=== PATIENT | male | born 1965 | race Caucasian/White ===

== ENCOUNTER → 2024-01-25 14:17 | Outpatient (BNVA) | payer OTHER, SELFPAY | PROVIDERS: Visit Provider Orthopaedic Surgery | DX: M47.22 Other spondylosis with radiculopathy, cervical region (principal); M54.50 Low back pain, unspecified; M54.2 Cervicalgia; M54.9 Dorsalgia, unspecified | CPT/HCPCS: 72110; 99204 ==

== ENCOUNTER 2024-04-02 13:02 | Outpatient (CLI) | payer OTHER, SELFPAY ==
--- NOTE | 2024-04-02 13:00 | MR_ITS ---
WS: [id number] MRI LUMBAR SPINE NONCONTRAST HISTORY: lumbar pain COMPARISON: Lumbar radiograph 01/25/2024 TECHNIQUE: Sagittal and axial multisequence imaging is submitted. Mild increase in thoracic kyphosis. Slight retrolisthesis of L2. 5 nonrib-bearing lumbar vertebral bodies were noted on the recent radiog raph. This numbering pattern is used for this MRI purpose. Disc spaces and vertebral body heights are well-preserved. Conus terminates normally at L1-2 disc level. L1-L2: Mild facet arthritis and narrowing of the LEFT foramen. L2-L3: Mild annular disc bulging with mild ligamentum flavum and facet disease. Small amount of fluid in the facet joints. No significant stenosis. L3-L4: Mild annular disc bulging with moderate ligamentum flavum and facet arthritis. Small amount of fluid in the facet joints. There is disc encroachment upon the subarticular recesses and traversing L4 nerve roots. Mild central, bilateral subarticular recess and foraminal stenosis. L4-L5: Mild annular disc bulging with ligamentum flavum and advanced facet arthritis. Small amount of fluid in the facet joints. Shallow RIGHT foraminal disc protrusion. Marked degenerative changes invo lving the facet joints with fluid. Mild central stenosis with bilateral subarticular recess encroachm ent. At least moderate bilateral foraminal stenosis but greatest on the RIGHT. There is significant e ncroachment upon the RIGHT exiting L4 nerve root. Lesser encroachment on the LEFT. L5-S1: Mild annular disc bulging. Moderate facet joint arthritis, RIGHT greater than LEFT. Mild facet joint synovitis is noted at L4-5 and L5-S1, greater on the RIGHT than the LEFT. 8 mm cyst associated with the RIGHT L4-5 facet joint. Small cyst lower pole RIGHT kidney. MR/MR lumbar spine wo con* [id number] IMPRESSION: 1. Advanced facet joint arthritis at L4-5 and L5-S1 with synovitis, greatest o n the RIGHT. 2. L3-4: Mild central and bilateral subarticular recess and foraminal stenosis . Disc encroachment upon the traversing L4 nerve roots. 3. L4-5: Mild central with bilateral subarticular recess encroachment. Moderat e bilateral foraminal stenosis, greatest on the RIGHT. Most significant encroac hment is upon RIGHT exiting L4 nerve root. 4. No high-grade central stenosis.
--- NOTE | 2024-04-02 13:45 | MR_ITS ---
WS: [id number] MRI CERVICAL SPINE NONCONTRAST HISTORY: Bilateral neck pain. COMPARISON: None available. Technique: Multiplanar, multisequence noncontrast imaging of the cervical spine. Normal cervical alignment with no compression fracture or significant disc space narrowing. Signal within the cervical cord is normal. Visualized posterior fossa is unremarkable. Craniocervical junction, C1 and C2 relationship, odontoid process and soft tissues are normal. C2-C3: Normal. C3-C4: Normal. C4-C5: Mild osteophytic ridging. Very mild bilateral foraminal stenosis. C5-C6: Mild annular disc bulging with a central disc protrusion. Bilateral foraminal disc osteophyte complexes. Mild central stenosis with moderate to severe RIGHT foraminal stenosis due to the disc ost eophyte complex. Mild stenosis LEFT foramen. C6-C7: Mild annular disc bulging. Moderate to large LEFT foraminal disc osteophyte. There is deformit y of the exiting nerve root and posterior displacement. Additional slightly smaller disc osteophyte c omplex on the RIGHT. Mild central with severe LEFT and moderate RIGHT foraminal stenosis. C7-T1: Normal. Paraspinal soft tissue are normal. MR/MR cervical spin wo con* [id number] IMPRESSION: 1. C5-6: Central and bilateral disc osteophyte complexes. Moderate to severe R IGHT foraminal with mild central and LEFT foraminal stenosis. 2. C6-7: Moderate to large LEFT foraminal disc osteophyte complex. Resulting i n severe LEFT foraminal stenosis. Moderate RIGHT foraminal stenosis due to disc osteophyte complex and mild central stenosis.
== END 2024-04-02 13:03 | disposition home or self-care (01) ==
LOC: RAD 13:03
PROVIDERS: PCP Emergency Medicine Emergency Medical Services; Visit Provider Orthopaedic Surgery
DX: M99.61 Osseous and subluxation stenosis of intervertebral foramina of cervical region (principal); M25.78 Osteophyte, vertebrae; M47.896 Other spondylosis, lumbar region; M65.9 Synovitis and tenosynovitis, unspecified; M47.898 Other spondylosis, sacral and sacrococcygeal region
CPT/HCPCS: 72141; 72148

== ENCOUNTER → 2024-05-09 11:00 | Outpatient (BNVA) | payer OTHER, SELFPAY | PROVIDERS: PCP Emergency Medicine Emergency Medical Services; Visit Provider Orthopaedic Surgery | DX: Z01.818 Encounter for other preprocedural examination (principal); Z09 Encounter for follow-up examination after completed treatment for conditions other than malignant neoplasm | CPT/HCPCS: 36415; 80053; 81001; 85025; 99214 ==

== ENCOUNTER 2024-05-24 07:32 | Day surgery (SDC) | payer OTHER, SELFPAY ==
[2024-05-24] VITALS (11 sets, daily range): BP systolic 109–162; BP diastolic 70–105; PULSE 54–81; RESP 12–18; TEMP 36.2–36.7; O2SAT 93–99; BMI 31.2
--- NOTE | 2024-05-24 | XR_ITS ---
WS: [id number] Exam: XR lumbar spine 2-3V* [id number] Date/Time of Exam: 05/24/2024 12:00 AM Reason For Exam: CARITO PICKamla Intraoperative C-arm images of the lower lumbar spine are submitted for evaluation. Images are obtained for intraoperative localization purposes.
[2024-05-24] MEDS: sodium chloride 0.9% 1,000 ML 30 ML IV (09:12)
[2024-05-24] MEDS: fentaNYL 50 mcg/mL INJ 2mL 100 MCG IVP (11:06)
--- NOTE | 2024-05-24 11:18 | ANES.PREANE2 ---
Pre-Anesthetic Assessment Height/Weight: Height 5 ft 11 in Weight 224 lb Temp Pulse Resp BP Pulse Ox O2 Del Method 98.0 F 60 18 159/101 94 Room Air 05/24/24 08:58 05/24/24 08:58 05/24/24 11:06 05/24/24 08:58 05/24/24 11:06 05/24/24 08:59 Preop Diagnosis: Lumbar stenosis with neurogenic claudication Operation Date: 05/24/24 13:05 Proposed Procedures p Lumbar Spine Decompression Lumbar Decompression(Not Applicable) - Prabhu Jeffries, DO Was Beta Irina taken within 24 hours: N/A Was Clonidine taken within 24 hours: N/A Last intake: Intake Last Liquid Date 05/24/24 Last Liquid Time 05:30 Last Solid Date 05/23/24 Last Solid Time 20:30 Social Tobacco and No alcohol Exam alert, oriented x 3, clear to auscultation bilaterally and regular rate & rhythm Airway Submandibular: within normal limits Cervical ROM: within normal limits Mallampati: Class III Dentition: full Anesthetic Plan ASA status: 2 Anesthesia: General Other: No history of anesthesia NPO since this a.m., black coffee at 5:30 AM Current smoker, no inhaler use Denies any cardiac issues. Preop BP 159/101 Patient appears very nervous METs greater than 4 Plan for GETA Medications/Allergies Home Medications Medication Instructions Recorded Confirmed Last Taken Type gabapentin 600 mg tablet 1,200 mg PO TID 01/25/24 05/23/24 05/23/24 History indomethacin 50 mg capsule 50 mg PO BID 01/25/24 05/23/24 05/23/24 History pantoprazole 40 mg tablet,delayed 40 mg PO DAILY 01/25/24 05/23/24 05/24/24 History release Allergies Allergy/AdvReac Type Severity Reaction Status Date / Time No Known Allergies Allergy Verified 05/20/24 11:48 Current Medications Generic Name Dose Route Start Last Admin Trade Name Freq PRN Reason Stop Dose Admin Sodium Chloride 1,000 mls @ 30 mls/hr 05/24/24 09:00 05/24/24 09:12 Sodium Chloride 0.9% IV 05/25/24 08:59 30 mls/hr .Q24H ADRIAN Administration PFSH Anesthesia Social History Smoking and tobacco/nicotine status: current every day tobacco/nicotine user Data Anesthesia Cardiac Studies: No Data to Display
--- NOTE | 2024-05-24 11:20 | W.PM.OPSUD ---
Surgery/Procedure H&P Update DATE OF PROCEDURE: May 24, 2024 DATE H&P PERFORMED: 05/20/24 H&P UPDATE INFORMATION: I have reviewed H&P completed within last 30 days, I have examined patient prior to procedure and No changes to prior documentation PREOP DIAGNOSIS: Lumbar stenosis with neurogenic claudication PLANNED PROCEDURE: Operation Date: 05/24/24 13:05 Proposed Procedures p Lumbar Spine Decompression Lumbar Decompression(Not Applicable) - Prabhu Jeffries DO
[2024-05-24] MEDS: ceFAZolin 2,000 mg SDV 2000 MG IVP (13:45)
[2024-05-24] MEDS: lidocaine-epi 1% 20 mL INJ INJECTION (14:14)
--- NOTE | 2024-05-24 15:16 | P.OP_ITS ---
Operative Report Date of procedure: May 24, 2024 Pre-op diagnosis: Lumbar stenosis with neurogenic claudication Post-op diagnosis: same Procedure done: 1. L3-4 laminectomy with partial facetectomy 2. L4-5 laminectomy with partial facetectomy Surgeon: Prabhu Jeffries DO Estimated blood loss (mL): 20 Procedure: 1. L3-4 laminectomy with partial facetectomy 2. L4-5 laminectomy with partial facetectomy Patient is brought to the operative suite. After undergoing anesthesia they are placed in the prone position. All areas of impingement are well padded. Patient is then prepped and draped in the normal sterile fashion. A skin incision is made over the L3/4 level. This is confirmed under c-arm guidance. A series of dilators are passed and the tubular retractor is docked on the L3 lamina. A bovie is used to clear the soft tissue off the lamina and the L 3/4 facet joint. A high speed seble is then used to perform the laminectomy and take down the medial aspect of the L 3/4 facet joint. A kerrison rongeure was then used to take down the remaining lamina and smooth the edge of the laminectomy up to the point where the ligamentum flavum attaches. Attention was then brought to the medial aspect of the facet joint. The remaining medial aspect of the superior and inferior aspect of the facet joint were taken down with the kerrison from the pedicle of L3 to L 4. The facet joint had significant hypertrophy. Attention was then brought to the Ligamentum Flavum. The ligament was taken down from the lamina of L3 to L4 and out medially to the remaining facet joint. The ligament was thick. The dura was then exposed. The dura was in good repair. The L3 nerve was then traced with a curette out the L3/4 foramen and found to be adequately decompressed. The L4 nerve was traced with a curette around the L4 pedicle. The lateral recess was opened with a kerrison helping to further decompress the L4 nerve. Wound is then irrigated copiously with saline and surgiflo is used to stop any bleeding. The tubular retractor is removed A skin incision is made over the L4/5 level. This is confirmed under c-arm guidance. A series of dilators are passed and the tubular retractor is docked on the L4 lamina. A bovie is used to clear the soft tissue off the lamina and t he L 4/5 facet joint. A high speed seble is then used to perform the laminectomy and take down the medial aspect of the L 4/5 facet joint. A kerrison rongeure was then used to take down the remaining lamina and smooth the edge of the laminectomy up to the point where the ligamentum flavum attaches. Attention was then brought to the medial aspect of the facet joint. The remaining medial aspect of the superior and inferior aspect of the facet joint were taken down with the kerrison from the pedicle of L4 to L 5. The facet joint had significant hypertrophy. Attention was then brought to the Ligamentum Flavum. The ligament was taken down from the lamina of L4 to L5 and out medially to the remaining facet joint. The ligament was thick. The dura was then exposed. The dura was in good repa ir. The L4 nerve was then traced with a curette out the L4/5 foramen and found to be adequately decompressed. The L5 nerve was traced with a curette around the L5 pedicle. The lateral recess was opened with a kerrison helping to further decompress the L5 nerve. Wound is then irrigated copiously with saline and surgiflo is used to stop any bleeding. The tubular retractor is removed and the wound is closed with vicryl and monocryl suture. Glue is then used to protect the wound. A sterile dressing is then placed. Patient was then placed in the supine position and transferred to the PACU in stable condition.
[2024-05-24] MEDS: fentaNYL 50 mcg/mL INJ 2mL IVP (15:41)
[2024-05-24] MEDS: HYDROcodone-acetaminophen 5-325 mg Tablet 2 TAB PO (16:21)
--- NOTE | 2024-05-24 16:53 | ANE.PACU2 ---
Inpatient post-anesthesia follow up: Airway intact: Yes Vital signs: Temperature 97.3 F Pulse Rate 57 Respiratory Rate 16 Blood Pressure 162/105 Pulse Oximetry 98 Oxygen Delivery Me thod Room Air Oxygen Flow Rate Fraction of Inspir ed Oxygen Hydration adequate: Yes Nausea and vomiting: No Pain level: 1 Mental status: Baseline
--- NOTE | 2024-05-24 16:56 | SUR.PHASEII ---
Patient rated pain at 7 after pain pills. patient stated he wanted to go home with current pain level.
== END 2024-05-24 16:51 | disposition home or self-care (01) ==
PROVIDERS: PCP Family Medicine; Visit Provider Orthopaedic Surgery
PROC: (CPT 63005; principal; 2024-05-24 12:55)
DX: M48.062 Spinal stenosis, lumbar region with neurogenic claudication (principal); F17.200 Nicotine dependence, unspecified, uncomplicated
CPT/HCPCS: 63047; 63048; 72100; 76000; J0690; J1100; J2250; J2405; J2704; J3010; J3490; J7030